=== PATIENT | female | born 1990 | race Caucasian/White ===

== ENCOUNTER 2022-06-13 06:22 | Inpatient (IN) | payer OTHER ==
[2022-06-13 06:59] LABS: BILIRUBIN NEGATIVE (NEGATIVE); BLOOD 1+ Ery/uL (NEGATIVE); CLARITY CLOUDY (CLEAR); COLOR YELLOW (YELLOW); GLUCOSE (U) NORMAL (NORMAL); LEUKOCYTES 2+ Leu/uL (NEGATIVE); NITRITE NEGATIVE (NEGATIVE); PROTEIN 1+ mg/dL (NEGATIVE); SPECIFIC GRAVITY >=1.030 (1.001-1.030); UROBILINOGEN 0.2 mg/dL (0.2-1.0)
[2022-06-13 07:01] LABS: HCT 34.5 % (37.0-47.0); HGB 11.5 g/dl (12.5-16.0); MCH 28.6 pg (25.0-31.0); MCHC 33.3 g/dL (32.0-36.0); MCV 85.8 fL (78.0-100.0); MPV 12.1 fL (6.0-9.5); RBC 4.02 M/uL (4.20-5.40); RDW 12.9 % (11.5-14.0); WBC 9.7 K/uL (4.0-10.5)
[2022-06-13 07:05] LABS: URINARY WBC TNTC
[2022-06-13 07:06] LABS: BACTERIA 2+; MUCOUS LARGE
[2022-06-13 15:17] LABS: INR 0.98 (0.9-1.2); PROTHROMBIN TIME 12.7 SECONDS (11.9-13.9)
[2022-06-13 15:50] LABS: BASOPHIL 0.4 % (0-2); EOSINOPHIL 0.2 % (0-5); HCT 29.1 % (37.0-47.0); HGB 9.6 g/dl (12.5-16.0); LYMPHOCYTE 14.6 % (15-48); MCH 28.6 pg (25.0-31.0); MCV 86.6 fL (78.0-100.0); MONOCYTE 4.4 % (0-12); MPV 12.1 fL (6.0-9.5); NEUTROPHIL 79.6 % (41-80); NRBC 0; PLT 197 K/uL (150-400); RBC 3.36 M/uL (4.20-5.40); RDW 12.9 % (11.5-14.0); WBC 13.7 K/uL (4.0-10.5)
[2022-06-13 18:40] LABS: BASOPHIL 0.3 % (0-2); EOSINOPHIL 0.1 % (0-5); HCT 26.2 % (37.0-47.0); HGB 8.7 g/dl (12.5-16.0); LYMPHOCYTE 14.2 % (15-48); MCH 29.1 pg (25.0-31.0); MCHC 33.2 g/dL (32.0-36.0); MCV 87.6 fL (78.0-100.0); MONOCYTE 4.6 % (0-12); MPV 12.1 fL (6.0-9.5); NEUTROPHIL 79.7 % (41-80); NRBC 0; PLT 186 K/uL (150-400); RBC 2.99 M/uL (4.20-5.40); WBC 15.4 K/uL (4.0-10.5)
[2022-06-13 18:44] LABS: PROTHROMBIN TIME 12.9 SECONDS (11.9-13.9); PTT 25.3 SECONDS (24.9-34.6)
[2022-06-14 07:01] LABS: HCT 23.1 % (37.0-47.0); HGB 7.6 g/dl (12.5-16.0); MCH 28.8 pg (25.0-31.0); MCHC 32.9 g/dL (32.0-36.0); MCV 87.5 fL (78.0-100.0); MPV 11.1 fL (6.0-9.5); RBC 2.64 M/uL (4.20-5.40); RDW 13.2 % (11.5-14.0)
[2022-06-14 07:19] LABS: INR 1.01 (0.9-1.2); PTT 25.9 SECONDS (24.9-34.6)
== END 2022-06-15 11:48 | disposition home or self-care (01) | DRG 768 ==
LOC: FOB 06:22
PROVIDERS: ADMIT Obstetrics & Gynecology
PROC: 10E0XZZ Delivery of Products of Conception, External Approach (ICD-10-PCS; principal; 2022-06-13)
PROC: 0W3R7ZZ Control Bleeding in Genitourinary Tract, Via Natural or Artificial Opening (ICD-10-PCS; 2022-06-13)
PROC: 0UQMXZZ Repair Vulva, External Approach (ICD-10-PCS; 2022-06-13)
PROC: 30233K1 Transfusion of Nonautologous Frozen Plasma into Peripheral Vein, Percutaneous Approach (ICD-10-PCS; 2022-06-13)
PROC: 30233K1 Transfusion of Nonautologous Frozen Plasma into Peripheral Vein, Percutaneous Approach (ICD-10-PCS; 2022-06-13)
DX: O23.43 Unspecified infection of urinary tract in pregnancy, third trimester (principal); Z37.0 Single live birth; D62 Acute posthemorrhagic anemia; N39.0 Urinary tract infection, site not specified; O72.1 Other immediate postpartum hemorrhage; Z3A.39 39 weeks gestation of pregnancy; Z20.822 Contact with and (suspected) exposure to COVID-19; O34.83 Maternal care for other abnormalities of pelvic organs, third trimester; N83.202 Unspecified ovarian cyst, left side; O71.82 Other specified trauma to perineum and vulva; O99.02 Anemia complicating childbirth; D50.9 Iron deficiency anemia, unspecified; O99.893 Other specified diseases and conditions complicating puerperium; T80.89XA Other complications following infusion, transfusion and therapeutic injection, initial encounter; L50.9 Urticaria, unspecified
CPT/HCPCS: 36415; 36430; 81001; 85025; 85384; 85610; 85730; 86850; 86900; 86901; J1200; J2795; J2916; J7050; J7120; J7121; P9017; U0002